=== PATIENT | female | born 1960 | race Caucasian/White ===

== ENCOUNTER 2016-12-03 16:55 | Emergency (ER) | payer OTHER ==
[~2016-12-03] VITALS: Ht 160 cm; Wt 69.4 kg
[~2016-12-03 16:55] MED LIST: BUPROPION HCL300 MG PO; ETODOLAC400 MG PO; FLUOXETINE10 MG PO; OMEPRAZOLE40 MG PO; PANTOPRAZOLE SO40 MG PO; PREMPRO1 TAB PO; TRAZADONE HYDR100 MG PO; VALTREX1 GM PO; ZOFRAN4 MG PO; ZYRTEC ALLERGY10 MG PO
[2016-12-03] MEDS ORDERED: MEDROL 4MG. DOSE4 MG PO (19:10)
[2016-12-03] MEDS ORDERED: FLONASE 50 MCG16 GM (19:10)
--- NOTE | 2016-12-03 19:11 | Urgent Treatment Center Report ---
History of Present Issue Date/Time Seen by Provider 12/03/16 1857 Visit Reason Pt arrived:Walked Presenting Problem:PT C/O CONGESTION, SOA, RUNNY NOSE, AND SINUS PRESSURE X1 WEEK Location if Accident: Onset of symptoms date/time:/ or onset unknown for:MEDICAL HX UNKNOWN Have you (or family members/close friends) recently traveled outside the [place]? N If Yes, where/when: Have you had exposure to infectious disease within the past month? TB? Other? Specify: Patient states that she is currently taking Cefdinir for sinus infection. State that she still is having sinus pain and pressure States that she having drainage still down the back of her throat and it is making her cough. States that she thinks she may need something added to her antibiotic to help her feel better ALLERGIES Coded Allergies: SHELLFISH (FOOD) (From SHELLFISH (FOOD/DRUG)) (Severe, S-DIFF. BREATHING ) shellfish derived (From SHELLFISH (FOOD/DRUG)) (Severe, S-DIFF. BREATHING ) Penicillins (06/11/15) Sulfa (Sulfonamide Antibiotics) (06/11/15) ciprofloxacin (From CIPRO) (06/11/15) Home Medications Active Scripts ONDANSETRON HCL (Zofran 4MG Tab) 4 MG PO Q6HP PRN NAUSEA AND VOMITING #12 TAB Prov: 06/11/15 Pantoprazole Sodium (Pantoprazole 40MG) 40 MG PO DAILY #30 ECT Ref 2 Prov: 06/11/15 VALACYCLOVIR HCL (Valtrex) 1 GM PO Q12 1 Days Prov: 06/11/15 Reported Medications BUPROPION HCL (Bupropion XL) 300 MG PO DAILY #90 Trazodone Hcl (Trazodone HCl) 100 MG PO QHSP PRN SLEEP #90 Cetirizine Hcl (Zyrtec) 10 MG PO DAILY History Medical History General CAD? No Angina: No CO: No Hypertension? No Hyperlipidemia? No CHF? No DVT? No PE? No COPD? No Asthma? No Anemia? No GERD? No Gastric ulcers? No GI Bleed? No Hernia? No Thyroid Problems? No Hypothyroidism? No CVA? No Seizures? No Diabetes? No Renal Insuffiency? No UTI? No Stones? No BPH? No GB Disease: Yes Nephritic Syndrome? No Asplenia? No Hepatitis? No Sickle Cell Disease? No Arthritis? No Migraines? No Cataracts? No Glaucoma? No MRSA? No HIV? No TB? No Anxiety? No Depression? No Cancer? No More? No Immunization HX DT/Tetanus 5-10 Years Ago Pneumonia Refuses Surgical Hx Previous Surgery?Y Oral Surgery ABLATION [place] OVARIAN CYST D AND C Family History Family HX Diabetes No CAD Yes Hypertension Yes Hyperlipidemia Yes Cancer Yes TB No Social History Smoking Hx Smoker: Never Smoker Tobacco: No Alcohol Alcohol: No Review of Systems All Other Systems Reviewed and Negative Constitutional denies chills, denies fever ENT nose discharge, nose congestion, throat pain. Respiratory cough, denies shortness of breath, denies wheezing Physical Exam Vital Signs Vital Signs Date Time Temp Pulse Resp B/P Pulse O2 O2 Flow FiO2 Ox Delivery Rate 12/03 1826 98.2 82 18 146/90 99 General Appearance normal appearance, WD/WN, no apparent distress Ear, Nose, Throat sinus pain/drainage, nasal congestion, Throat irritated drainage noted with tenderness noted in maxillary sinsues Respiratory Status Yes: trachea midline, chest symmetrical. No: respiratory distress. Cardiovascular normal exam, regular rate/rhythm Neurologic alert, normal exam, oriented x 3 Medical Decision Making LABS/Meds/Orders Pt receiving controlled substance in ED? No Results/Orders Current Medication Orders Sig/Seda Start time Last Medication Dose Route Stop Time Status Admin Prednisone 20 MG ONCE ONE 12/03 1914 AC PO 12/04 1915 Departure Departure Time of Disposition 1906 Disposition DC Home or Self Care(routine) Clinical Impression Primary Impression: Sinusitis Qualifiers: Sinusitis location: unspecified location Chronicity: unspecified Qualified Code: J32.9 - Chronic sinusitis, unspecified Condition STABLE Referrals Alfonso Galloway MD (Family): 3 Days-Call Office if symptoms worsen Patient Instructions DI for Sinusitis, Methylprednisolone Oral Additional Instructions Continue taking medication prescribed by Laverne Follow up with family doctor if symptoms not improved Return if needed Take medication as prescribed Discharge Counseling Counseled pt/family regarding diagnosis, medications/RX, home care, follow up needs Prescriptions Current Visit Scripts Methylprednisolone (Medrol Dose Anjum) 4 MG PO UD #1 ANJUM TAKE DIRECTED ON PACKAGING Fluticasone Propionate (Flonase 50 Mcg Nasal [place]) 2 SPRAY NA DAILY #1 BOT at 1911
[2016-12-03 19:26] VITALS: BP 146/90
--- OUTSIDE RECORDS SUMMARY | 2016-12-09 16:02 | External Medical Summary Rpt | CCD ---
Author Author [employer] Organization [employer] Address Unknown Phone Unavailable Purpose Continuity of Care Document - through 2016
--- OUTSIDE RECORDS SUMMARY | 2016-12-09 16:02 | External Medical Summary Rpt | CCD ---
Author Author , [facility] Organization [employer] Address Unknown Phone [email or web address] Care Team Providers Care Client Representative Name Role Phone JAMIE MARIPOSA SCHUSTER, Unavailable Unavailable JAMIE MONGE DO Purpose Continuity of Care Document - 02-07-2013 through 2016 Problems Code Diagnosis DOS Provider Status 300.00 300.00 02-07-2013 [place] ANXIETY [facility] 530.81 530.81 02-07-2013 [place] ESOPHAGEAL [facility] 786.59 [phone] 02-07-2013 [place] CHEST PAIN [facility] Allergies, Adverse Reactions, Alerts Type Drug Allergy Adverse Reaction to Substance Substance Reaction Severity Penicillin I-RASH Unknown SULFA (sulfonamide) I-ITCHING Unknown Ciprofloxacin I-ITCHING Unknown Shellfish S-DIFF. BREATHING Unknown Medications Na ND Rx Da Fi Fi Am Da Di Ph RX Ph St me C No te ll ll ou ys ag ar # ys at rm s nt no ma ic us Or Da si cy ia de te s n re d Sa 63 12 0 No li 80 -1 ne 70 2- Lo 10 20 ng Fl 07 13 er us 5 h Ac 10 ti ML ve Sy ri ng e GI 12 12 0 No 32 -1 CO 22 2- Lo CK 22 20 ng TA 22 13 er IL 2 Ac 60 ti ML ve UD C LO 00 12 0 No RA 64 -1 ZE 16 2- Lo PA 04 20 ng M 82 13 er 2 5 MG Ac /M ti L ve AL Vital Signs 02-07-2013 12:49 Name Value Interpretat Reference Comment ion Range BP 85 mm[Hg] Diastolic BP Systolic 130 mm[Hg] Heart 89 /min Rate/Pulse O2% 98 % Respiratory 20 /min Rate 02-07-2013 11:18 Name Value Interpretat Reference Comment ion Range BP 88 mm[Hg] Diastolic BP Systolic 145 mm[Hg] Heart 69 /min Rate/Pulse O2% 100 % Respiratory 20 /min Rate Results Labs Lab Lab Date Result Refere Interp Status Commen Order Detail nces retati t Range on COMPREHENSIVE METABOLIC PANEL (02-07-2013 11:00) Glucose 89 74-106 complet 013 mg/dL ed Bld-mCn 11:00 c BUN 8 mg/dL 7-18 complet Bld-mCn 013 ed c 11:00 Creat 0.6 0.6-1.0 complet SerPl-m 013 mg/dL ed Cnc 11:00 Creat 135 50-200 complet Cl 013 ML/MIN ed predict 11:00 ed SerPl C-G-vRa te GFR/BSA 105 59- complet .pred 013 ML/MIN ed SerPl 11:00 Schwart z-vRate Sodium 141 136-145 complet SerPl-s 013 mmoL/L ed Cnc 11:00 Potassi 3.7 3.5-5.1 complet um 013 mmoL/L ed SerPl-s 11:00 Cnc Chlorid 104 98-107 complet e 013 mmoL/L ed SerPl-s 11:00 Cnc CO2 31 21.0-32 complet SerPl-s 013 mmoL/L .0 ed Cnc 11:00 Calcium 8.4 8.5-10. complet 013 mg/dL 1 ed SerPl-m 11:00 Cnc Prot 7.3 6.4-8.2 complet SerPl-m 013 gm/dL ed Cnc 11:00 Albumin 3.7 3.4-5.0 complet 013 gm/dL ed SerPl-m 11:00 Cnc Globuli 3.6 1.3-3.2 complet n 013 gm/dL ed Ser-mCn 11:00 c Albumin 1.0 UNK 1.1-1.8 complet /Glob 013 ed SerPl-m 11:00 Rto Bilirub 0.5 0.2-1.0 complet 013 mg/dL ed SerPl-m 11:00 Cnc AST 27 U/L 15-37 complet SerPl-c 013 ed Cnc 11:00 ALT 2 38 U/L 30-65 complet SerPl-c 013 ed Cnc 11:00 ALP 02-07-2 108 U/L 50-136 complet SerPl-c 013 ed Cnc 11:00 BNP Bld-mCnc (02-07-2013 11:00) BNP 02-07-2 34 0-100 complet Bld-mCn 013 pg/mL ed c 11:00 CBC with AUTO DIFF (02-07-2013 11:00) WBC # 02-07-2 6.0 4.8-10. complet Bld 013 K/MM3 8 ed Auto 11:00 RBC # 02-07-2 4.59 4.2-5.4 complet Bld 013 M/mm3 ed Auto 11:00 Hgb 02-07-2 13.7 12.2-16 complet Bld-mCn 013 g/dL .2 ed c 11:00 Hct Fr 40.8 % 37.0-47 complet Bld 013 .0 ed 11:00 MCV RBC 02-07-2 88.9 fl 82.2-97 complet 013 .8 ed 11:00 MCH RBC 02-07-2 29.9 pg 27-31.2 complet Qn 013 ed Auto 11:00 MEAN 02-07- 33.7 31.8-35 complet CORPUSC 013 g/dl .4 ed ULAR 11:00 HGB CONC RDW RBC 02-07-2 13.7 % 11.5-17 complet Auto 013 .5 ed 11:00 Platele 02-07-2 302 142-424 complet t Bld 013 K/mm3 ed Ql 11:00 Manual MEAN 02-07-2 7.1 fl 7.4-10. complet PLATELE 013 4 ed T 11:00 VOLUME Granulo 2 55.8 % 37.0-80 complet cytes 013 .0 ed Fr Bld 11:00 Auto LYMPH % 02-07-2 33.7 % 10-50.0 complet 013 ed 11:00 Monocyt 02-07-2 7.9 % 1.7-9.3 complet es Fr 013 ed Bld 11:00 Auto Eosinop 02-07-2 2.0 % 0.1-12. complet hil Fr 013 0 ed Bld 11:00 Auto Basophi 02-07-2 0.6 % 0.1-2.0 complet ls Fr 013 ed Bld 11:00 Auto Granulo 3.3 1.8-7.8 complet cytes # 013 K/mm3 ed Bld 11:00 Auto Lymphoc 2.0 0.7-4.5 complet ytes Fr 013 K/mm3 ed Bld 11:00 Auto Monocyt 0.5 0.1-1.0 complet es # 013 K/mm3 ed Bld 11:00 Auto Eosinop 0.1 0.0-0.4 complet hil # 013 K/mm3 ed Bld 11:00 Auto Basophi 2 0.0 0-0.2 complet ls # 013 K/MM3 ed Bld 11:00 Auto Encounters Encounter Start End Date Code Location Performer Type Date Emergency SHIRA MONGE DO (ER) 3 11:12 3 12:50 [facility]
--- OUTSIDE RECORDS SUMMARY | 2016-12-09 16:02 | External Medical Summary Rpt | CCD ---
Author Author , [facility] Organization [employer] Address Unknown Phone Care Team Providers Care Imaging Engineer Name Role Phone JAMIE MARIPOSA SCHUSTER, Unavailable Unavailable JAMIE MONGE DO Purpose Continuity of Care Document - 02-07-2013 through 2016 Problems Code Diagnosis DOS Provider Status 300.00 300.00 02-07-2013 [place] ANXIETY [facility] 530.81 530.81 02-07-2013 [place] ESOPHAGEAL [facility] 786.59 [phone] 02-07-2013 [place] CHEST PAIN [facility] Allergies, Adverse Reactions, Alerts Type Drug Allergy [...] MONGE DO (ER) 3 11:12 3 12:50 [facility]
--- OUTSIDE RECORDS SUMMARY | 2016-12-09 16:02 | External Medical Summary Rpt | CCD ---
Demographics Preferred Language Bengali Marital Status Unknown Restorationist Affiliation Unknown Race Unknown Ethnic Group Unknown Author Author , [facility] JOSE Address Unknown Phone Immunization No patient found.
--- OUTSIDE RECORDS SUMMARY | 2016-12-09 16:02 | External Medical Summary Rpt | CCD ---
Demographics Preferred Language Armenian Marital Status Unknown Congregational Affiliation Unknown Race Unknown Ethnic Group Unknown Author Author , [facility] JOSE Address Unknown Phone Immunization No patient found.
== END 2016-12-03 19:27 | disposition home or self-care (01) ==
LOC: UTC 16:55
DX: J32.9 Chronic sinusitis, unspecified (principal); Z88.0 Allergy status to penicillin; Z88.2 Allergy status to sulfonamides

== ENCOUNTER → 2016-12-05 | Outpatient (CLI) | payer OTHER ==
[~2016-12-05] MED LIST changes: +FLONASE 50 MCG16 GM; +MEDROL 4MG. DOSE4 MG PO
--- NOTE | 2016-12-05 19:24 | RADIOLOGY REPORT PS360 ---
CHEST(2 VIEWS-NOT PORTABLE) HISTORY: BRONCHOPNEUMONIA ORDERING PHYSICIAN: Kelley Fishman APRN PATIENT AGE: 56 years COMPARISON: 06/11/2015 FINDINGS: The cardiomediastinal silhouette and pulmonary vascularity are within normal limits. The lungs are clear without infiltrates, suspicious nodules, or pleural effusions. No acute bony abnormalities. IMPRESSION: Negative chest, no acute finding
== END ==
LOC: RAD 18:39
DX: J18.0 Bronchopneumonia, unspecified organism (principal)